=== PATIENT | female | born 1975 | race Caucasian/White ===

== ENCOUNTER 2017-12-22 12:20 | Emergency (ER) | payer OTHER ==
[~2017-12-22] VITALS: Ht 165.1 cm; Wt 101.1 kg
[2017-12-22 12:27] VITALS: BP 139/84
[2017-12-22] MEDS ORDERED: OXYcodone/APAP 5/325MG TABLET PO ONE (14:00)
[2017-12-22] MEDS ORDERED: ONDANSETRON ODT 4 MG PO ONE (14:00)
[2017-12-22] MEDS ORDERED: DIAZEPAM 5 MG TABLET PO ONE (14:00)
[2017-12-22] MEDS ORDERED: DIAZEPAM 5 MG TABLET ONE (14:02)
[2017-12-22] MEDS ORDERED: OXYcodone/APAP 5/325MG TABLET ONE (14:02)
[2017-12-22] MEDS ORDERED: ONDANSETRON ODT 4 MG ONE (14:03)
== END 2017-12-22 14:57 | disposition home or self-care (01) ==
LOC: ED 13:00
DX: M54.16 Radiculopathy, lumbar region (principal); G89.11 Acute pain due to trauma; J45.909 Unspecified asthma, uncomplicated; Z88.0 Allergy status to penicillin
CPT/HCPCS: 72110; 99284; J7512; Q0162